=== PATIENT | female | born 1940 | race Caucasian/White ===

== ENCOUNTER → 2025-01-14 | Day surgery (SDC) | payer MEDICARE, MEDICAID ==
[~2025-01-14] VITALS: Ht 157.5 cm; Wt 65.8 kg
[~2025-01-14] MED LIST: BUPIVACAINE HCL/PF 0.5% (5MG/ML) 10ML ONE; LACTATED RINGERS 1,000 ML IV SCH; PROPOFOL 200MG/20ML VIAL IV ONE
== END | disposition home or self-care (01) ==
LOC: OR 08:28
PROVIDERS: ATTEND Surgery
DX: K62.9 Disease of anus and rectum, unspecified (principal); Z53.8 Procedure and treatment not carried out for other reasons; K64.4 Residual hemorrhoidal skin tags; Z79.899 Other long term (current) drug therapy; Z98.890 Other specified postprocedural states
CPT/HCPCS: J0665; J2704